=== PATIENT | male | born 1985 | race Caucasian/White ===

== ENCOUNTER 2021-08-04 12:35 | Emergency (ER) | payer OTHER ==
[2021-08-04 14:09] LABS: HEMOGLOBIN 16.2 gm/dl (14.0-17.5); RED BLOOD COUNT 5.3 M/UL (4.20-5.50); WHITE BLOOD COUNT 6.9 K/UL (4.5-11.0)
[2021-08-04 14:31] LABS: BUN/CREATININE RATIO 11 (0-10)
== END 2021-08-04 16:00 | disposition home or self-care (01) ==
LOC: ER1 12:35
PROVIDERS: Preventive Medicine Occupational Medicine
DX: R10.9 Unspecified abdominal pain (principal)
CPT/HCPCS: 80053; 81001; 85025; 85652; 86140; 87086; 99284

== ENCOUNTER → 2021-08-24 | Outpatient (CLI) | payer OTHER | LOC: HEART 5 14:18 | DX: R00.0 Tachycardia, unspecified (principal) ==